=== PATIENT | male | born 1990 | race Caucasian/White ===

== ENCOUNTER 2020-02-03 20:16 | Emergency (ER) | payer MEDICAID ==
[2020-02-03 20:26] VITALS: BP 147/98
[2020-02-03] MEDS ORDERED: CHERRY SYRUP 10 ML UDC PO ONE (20:42)
[2020-02-03] MEDS ORDERED: IBUPROFEN 800 MG TABLET PO STA (20:42)
[2020-02-03] MEDS ORDERED: DEXAMETHASONE 10 MG/ML VIAL PO STA (20:42)
[2020-02-03] MEDS ORDERED: PENICILLIN VK 250 MG TABLET PO STA (20:42)
--- NOTE | 2020-02-03 20:46 | ED Physician Documentation ---
History of Present Illness - Stated complaint Stated Complaint: SORE THROAT/FEVER - Chief complaint Chief Complaint: Heent - History obtained from History obtained from: Patient - History of Present Illness Timing: Today Pain level max: 6 Pain level now: 5 - Additonal information Additional information: Patient with a sore throat starting today, gradually worsened throughout the day. Some chills. No cough. No rhinorrhea or congestion. Worse with swallowing and better with rest Review of Systems Constitutional: reports: Fever, Chills Throat: reports: Sore throat GI: denies: Vomiting Skin: denies: Rash PD PAST MEDICAL HISTORY - Past Medical History Past Medical History: No - Past Surgical History Past Surgical History: No - Present Medications Home Medications: Ambulatory Orders Medication Instructions Recorded Confirmed Ibuprofen [Motrin] 800 mg PO Q8H PRN #30 tablet 02/03/20 Penicillin V Potassium 500 mg PO Q6HR #40 tablet 02/03/20 - Allergies Allergies/Adverse Reactions: Allergies Allergy/AdvReac Type Severity Reaction Status Date / Time No Known Drug Allergies Allergy Verified 02/03/20 20:21 PD ED PE NORMAL - Vitals Vital signs reviewed: Yes - General General: Alert and oriented X 3, No acute distress - HEENT HEENT: Ears normal, Moist mucous membranes, Other (Posterior oropharynx is erythematous with tonsillar exudates. Normal phonation. No trismus. Uvula midline.) - Neck Neck: Supple, no meningeal sign, Other (Shotty anterior lymphadenopathy) - Cardiac Cardiac: RRR - Respiratory Respiratory: No respiratory distress, Clear bilaterally - Derm Derm: Warm and dry, No rash - Neuro Neuro: Alert and oriented X 3 Results - Vitals Vitals: Vital Signs - 24 hr 02/03/20 20:21 Temperature 37.3 C Heart Rate 102 H Respiratory 18 Rate Blood Pressure 147/98 H O2 Saturation 97 Oxygen O2 Source Room air - Labs Labs: Laboratory Tests 02/03/20 20:30 Group A Strep Rapid POSITIVE H PD MEDICAL DECISION MAKING - ED course Complexity details: considered differential, d/w patient ED course: With strep pharyngitis. Will place on antibiotics. Given dexamethasone and Motrin. Patient counseled regarding signs and symptoms for which I believe and urgent re-evaluation would be necessary. Patient with good understanding of and agreement to plan and is comfortable going home at this time This document was made in part using voice recognition software. While efforts are made to proofread this document, sound alike and grammatical errors may occur. No peritonsillar or retropharyngeal abscess Departure - Departure Disposition: 01 Home, Self Care Clinical Impression: Strep pharyngitis Condition: Good Instructions: ED Strep Pharyngitis Conf Follow-Up: your,doctor in 1 week if not better [Other] Prescriptions: Penicillin V Potassium 500 mg PO Q6HR #40 tablet Ibuprofen [Motrin] 800 mg PO Q8H PRN #30 tablet PRN Reason: PAIN &/OR FEVER Comments: Take all antibiotics until gone. Return if you worsen. Follow up with your doctor if you fail to improve as expected. Discharge Date/Time: 02/03/20 20:52
[2020-02-03 20:51] LABS: RAPID STREP SCREEN POSITIVE (Negative)
== END 2020-02-03 20:52 | disposition home or self-care (01) ==
LOC: ED 20:16
DX: J02.0 Streptococcal pharyngitis (principal)
CPT/HCPCS: 87430; 99283; 99284; A9270

== ENCOUNTER 2020-05-06 20:45 | Emergency (ER) | payer MEDICAID ==
[2020-05-06 21:09] LABS: RAPID STREP SCREEN Negative (Negative)
[2020-05-06] MEDS ORDERED: CHERRY SYRUP 10 ML UDC PO ONE (21:15)
[2020-05-06] MEDS ORDERED: cephALEXin 250 MG CAPSULE PO STA (21:15)
[2020-05-06] MEDS ORDERED: DEXAMETHASONE 10 MG/ML VIAL PO STA (21:15)
--- NOTE | 2020-05-06 21:20 | ED Physician Documentation ---
History of Present Illness - Stated complaint Stated Complaint: SORE THROAT - Chief complaint Chief Complaint: Heent - History obtained from History obtained from: Patient - History of Present Illness Pain level max: 6 Pain level now: 5 - Additonal information Additional information: Patient with a sore throat for the past 3 to 4 days. T-max 101 at home. Worse with swallowing, better with rest. Has had recurrent strep pharyngitis 4 times in the past 6 months. Is not currently on any antibiotics. No recent travel. No vomiting. No nausea. No diarrhea. Review of Systems Constitutional: reports: Fever Ears: denies: Ear pain Nose: denies: Rhinorrhea / runny nose, Congestion Throat: reports: Sore throat GI: denies: Abdominal Pain, Nausea, Vomiting, Diarrhea Skin: denies: Rash Musculoskeletal: denies: Neck pain, Back pain Neurologic: denies: Headache PD PAST MEDICAL HISTORY - Past Medical History Past Medical History: No - Past Surgical History Past Surgical History: No Ortho: Other - Present Medications Home Medications: Ambulatory Orders Medication Instructions Recorded Confirmed Ibuprofen [Motrin] 800 mg PO Q8H PRN #30 tablet 02/03/20 Penicillin V Potassium 500 mg PO Q6HR #40 tablet 02/03/20 Cephalexin [Keflex] 500 mg PO Q6H #40 capsule 05/06/20 Ibuprofen [Motrin] 800 mg PO Q8H PRN #30 tablet 05/06/20 - Allergies Allergies/Adverse Reactions: Allergies Allergy/AdvReac Type Severity Reaction Status Date / Time No Known Drug Allergies Allergy Verified 02/03/20 20:21 - Social History Does the pt smoke?: Yes Smoking Status: Former smoker Does the pt drink ETOH?: Yes Does the pt have substance abuse?: No - Immunizations Immunizations are current?: No PD ED PE NORMAL - Vitals Vital signs reviewed: Yes - General General: Alert and oriented X 3, No acute distress - HEENT HEENT: PERRL, Ears normal, Moist mucous membranes, Other (Posterior oropharynx is erythematous with tonsillar exudates. Normal phonation. No trismus. Uvula midline.) - Neck Neck: Supple, no meningeal sign - Cardiac Cardiac: RRR - Respiratory Respiratory: No respiratory distress, Clear bilaterally - Derm Derm: Warm and dry, No rash - Neuro Neuro: Alert and oriented X 3 - Psych Psych: Normal mood, Normal affect Results - Vitals Vitals: Vital Signs - 24 hr 05/06/20 05/06/20 20:52 21:26 Temperature 98.7 C H Heart Rate 81 80 Respiratory 20 16 Rate Blood Pressure 151/87 H 140/82 H O2 Saturation 98 97 Oxygen O2 Source Room air - Labs Labs: Laboratory Tests 05/06/20 21:00 Group A Strep Rapid Negative PD MEDICAL DECISION MAKING - ED course Complexity details: reviewed results, considered differential, d/w patient ED course: Patient with what appears to be strep pharyngitis. He is well-appearing, nontoxic. Afebrile. No peritonsillar or retropharyngeal abscess. Normal phonation. No trismus. Will place on antibiotics. Patient counseled regarding signs and symptoms for which I believe and urgent re-evaluation would be necessary. Patient with good understanding of and agreement to plan and is comfo rtable going home at this time This document was made in part using voice recognition software. While efforts are made to proofread this document, sound alike and grammatical errors may occur. Departure - Departure Disposition: 01 Home, Self Care Clinical Impression: Strep pharyngitis Condition: Good Instructions: ED Strep Pharyngitis Poss Follow-Up: your,doctor in 1 week [Other] - Within 1 week [facility] [Provider Group] Prescriptions: Cephalexin [Keflex] 500 mg PO Q6H #40 capsule Ibuprofen [Motrin] 800 mg PO Q8H PRN #30 tablet PRN Reason: PAIN &/OR FEVER Comments: Take all antibiotics until gone. Return if you worsen. Follow-up with ENT for further care. Discharge Date/Time: 05/06/20 21:26
[2020-05-06 21:26] VITALS: BP 140/82
== END 2020-05-06 21:26 | disposition home or self-care (01) ==
LOC: ED 20:45
DX: J02.0 Streptococcal pharyngitis (principal); Z87.891 Personal history of nicotine dependence
CPT/HCPCS: 87070; 87077; 87430; 99283; 99284; A9270

== ENCOUNTER 2020-08-26 00:36 | Emergency (ER) | payer OTHER, MEDICAID ==
--- NOTE | 2020-08-26 02:19 | ED Physician Documentation ---
PD HPI LOWER EXT INJURY - Stated complaint Stated Complaint: RT GREAT TOE LAC - Chief complaint Chief Complaint: Laceration - History obtained from History obtained from: Patient - History of Present Illness PD HPI LOW EXT INJURY LOCATION: Right, Foot Type of injury: Laceration, Crush Where injury occurred: Work Timing - onset: Enter time (23:00), Today Timing - details: Abrupt onset Pain level now: 6 Improved by: Rest Worsened by: Moving, Palpating Associated symptoms: No: Weakness, Numbness Contributing factors: Work related. No: Anticoagulated Recently seen: Not recently seen - Additional information Additional information: at approximately 11 PM tonight while at work, right foot was run over by a pallet shelly causing laceration to right foot at base of great toe Review of Systems Skin: reports: Laceration (s) Musculoskeletal: reports: Extremity pain (right foot), Pain with weight bearing Neurologic: denies: Focal weakness, Numbness PD PAST MEDICAL HISTORY - Past Medical History Past Medical History: No - Past Surgical History Past Surgical History: Yes Ortho: Other - Present Medications Home Medications: Ambulatory Orders Medication Instructions Recorded Confirmed No Known Home Medications 08/26/20 08/26/20 - Allergies Allergies/Adverse Reactions: Allergies Allergy/AdvReac Type Severity Reaction Status Date / Time No Known Drug Allergies Allergy Verified 08/26/20 00:55 - Social History Does the pt smoke?: No Smoking Status: Never smoker Does the pt drink ETOH?: Yes Does the pt have substance abuse?: No - Immunizations Immunizations are current?: No PD ED PE NORMAL - Vitals Vital signs reviewed: Yes - General General: Alert and oriented X 3, No acute distress, Well developed/nourished - Extremities Extremities: Normal ROM s pain - Neuro Neuro: No motor deficit, No sensory deficit PD ED PE EXPANDED - Extremities Feet visual: 1 - laceration (1.5 cm length) 2 - swelling, tenderness Results - Vitals Vitals: Vital Signs - 24 hr 08/26/20 08/26/20 00:45 04:12 Temperature 36.0 C L 36.7 C Heart Rate 61 58 L Respiratory 16 16 Rate Blood Pressure 136/73 H 134/82 H O2 Saturation 99 98 Oxygen O2 Source Room air - Rads (name of study) right foot xrays Radiology: Prelim report reviewed, See rad report Procedures - Laceration (location) Foot right Dorsal Length in cm: 1.5 Wound type: Linear Neurovascular status: Sensory intact, Motor intact, Vascular intact Tendon involvement: Tendon intact Anesthesia: Lidocaine 1%, With bicarb Wound Preparation: Chlorhexadine, Irrigated copiously NS, Wound explored, To the base. No: FB identified Skin layer closure: Nylon, Running Other: Patient tolerated well, No complications, Neurovascular intact, Dressing applied, Tetanus UTD Complexity: Simple PD MEDICAL DECISION MAKING - ED course Complexity details: reviewed results, re-evaluated patient, considered differential, d/w patient Departure - Departure Disposition: 01 Home, Self Care Clinical Impression: Laceration Condition: Good Instructions: ED Laceration Foot Comments: Follow up with your primary care provider in 8-10 days for removal of the stitches Forms: Activity restrictions Discharge Date/Time: 08/26/20 04:14
[2020-08-26] MEDS ORDERED: BUFFERED LIDOCAINE 10 ML SYRINGE IU ONE (02:40)
[2020-08-26] MEDS ORDERED: BACITRACIN ZINC OINT 1 PACKET TOP STA (03:53)
[2020-08-26 04:13] VITALS: BP 134/82
--- NOTE | 2020-08-26 08:56 | XRAY Report ---
PROCEDURE: Foot 3 View RT INDICATIONS: injury, tenderness TECHNIQUE: 3 views of the foot were acquired. COMPARISON: None FINDINGS: Bones: No fractures or dislocations. No suspicious bony lesions. Soft tissues: No tibiotalar joint effusion. Achilles tendon appears normal. IMPRESSION: No fracture. No osseous lesion. If there is continued clinical concern for pathology, then repeat colleen in film radiographs (7-10 days) or advanced imaging (CT, MR, bone scan) should be considered for furt her evaluation. Reviewed by: Carrol Mi MD, PhD on 08/26/2020 8:55 AM [facility] Approved by: Carrol Mi MD, PhD on 08/26/2020 8:55 AM [facility] Station ID: [id number]
== END 2020-08-26 04:14 | disposition home or self-care (01) ==
LOC: ED 00:36
DX: S91.311A Laceration without foreign body, right foot, initial encounter (principal); W31.89XA Contact with other specified machinery, initial encounter; Y93.89 Activity, other specified; Y99.0 Civilian activity done for income or pay
CPT/HCPCS: 12001; 73630; 99282; 99283; A9270